=== PATIENT | male | born 1950 | race Caucasian/White ===

== ENCOUNTER 2018-03-03 06:42 | Day surgery (SDC) | payer MEDICARE, OTHER ==
[2018-03-03] VITALS (10 sets, daily range): BP systolic 115–162; BP diastolic 55–97; PULSE 52–86; TEMP 97
[~2018-03-03] VITALS: Ht 175.3 cm; Wt 84.0 kg
[~2018-03-03 06:42] MED LIST: ALBUTEROL0.83 MG/ML IH; ASPIRIN E.C. 8181 MG PO; BYSTOLIC2.5 MG PO; EFFIENT10 MG PO; NITROSTAT0.4 MG/TAB SL; NORVASC2.5 MG PO; PRILOSEC 20MG20 MG PO; PROAIR HFA0.09 MG/AC IH; RANEXA1000 MG PO; RT ADVAIR 528 DISKUS IH; RT SPIRIVA18 MCG IH; VIAGRA50 M1 PO; ZESTRIL 5MG5 MG PO
[2018-03-03 07:57] LABS: HEMATOCRIT 39.3 % (42.0-52.0); MEAN CELL VOLUME 97 fl (80.0-100.0); MEAN CORPUSCULAR HEMOGLOBIN 32 pg (27.0-31.0); MEAN CORPUSCULAR HGB CONC 33 g/dl (33.0-37.0); MEAN PLATELET VOLUME 8.5 fl (7.4-10.4); PLATELET COUNT 165 K/mm3 (130-400); RED BLOOD COUNT 4.04 M/mm3 (4.20-5.60); REDCELL DISTRIBUTION WIDTH-CV 12.5 % (11.5-14.5)
[2018-03-03 07:59] LABS: CALCIUM 8.5 mg/dL (8.4-10.2); CREATININE, serum 1.15 mg/dL (0.66-1.25); POTASSIUM 3.8 mmol/L (3.4-5.0)
[2018-03-03 08:05] LABS: PROTHROMBIN TIME 11.2 SECONDS (9.7-12.8)
[2018-03-03] MEDS ORDERED: LIPITOR 40MG TA40 MG PO (08:39)
[2018-03-03] MEDS ORDERED: REFRESH OPTIVE10 M2 OP (08:40)
== END 2018-03-03 15:09 | disposition home or self-care (01) ==
LOC: COL.CAR 06:42
PROVIDERS: Internal Medicine Interventional Cardiology
DX: I25.118 Atherosclerotic heart disease of native coronary artery with other forms of angina pectoris (principal); M54.2 Cervicalgia; I10 Essential (primary) hypertension; J44.9 Chronic obstructive pulmonary disease, unspecified; G47.33 Obstructive sleep apnea (adult) (pediatric); K21.9 Gastro-esophageal reflux disease without esophagitis; Z99.81 Dependence on supplemental oxygen; Z79.82 Long term (current) use of aspirin; Z79.01 Long term (current) use of anticoagulants; Z86.73 Personal history of transient ischemic attack (TIA), and cerebral infarction without residual deficits; Z87.891 Personal history of nicotine dependence
CPT/HCPCS: J2250; J3010; Q9967